=== PATIENT | male | born 2000 | race Hispanic/Latino ===

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

== ENCOUNTER 2020-01-04 18:42 | Emergency (ER) | payer MEDICAID ==
[2020-01-04 19:14] VITALS: BP 109/51
--- NOTE | 2020-01-05 01:11 | Emergency Department Report ---
Chief Complaint: Medical Clearance Stated Complaint: MED REFILL Time Seen by Provider: 01/05/20 01:09 - HPI History of Present Illness: 19-year-old male presents to the emergency room for a checkup. Patient states that he needs a refill on his medication as he left his antibiotics at his mother's house. Patient reports he is gotten 5 days of his antibiotics in for a foot wound. Patient denies any swelling no pain no discharge from wound. Patient states he is able to ambulate without difficulties and without pain - Exam Vital Signs: Vital Signs 01/04/20 19:11 Temperature 98.4 F Pulse Rate 95 H Respiratory 22 Rate Blood Pressure 109/51 O2 Sat by Pulse 98 Oximetry Physical Exam: Alert and oriented x3 no acute distress nontoxic in appearance. Left foot no swelling to the plantar aspect non-tenderness nonerythematous eraser size opening with less than 2 mm in depth. No drainage appreciated. MSE screening note: Focused history and physical exam performed. Due to findings the following was ordered: 19-year-old male presents to the emergency room for a checkup. Patient states that he needs a refill on his medication as he left his antibiotics at his mother's house. Patient reports he is gotten 5 days of his antibiotics in for a foot wound. Patient denies any swelling no pain no discharge from wound. Patient states he is able to ambulate without difficulties and without pain ED Disposition for [facility] Disposition: Z-07 MED SCREENING EXAM-LEFT Is pt being admited?: No Does the pt Need Aspirin: No Condition: Stable Additional Instructions: Follow-up with the primary care provider. Referrals: JACQUI FERRIS MD [Primary Care Provider] - 3-5 Days [facility] [Provider Group] - 3-5 Days
== END 2020-01-05 01:15 | disposition left against medical advice (07) ==
LOC: ED 18:42
DX: Z76.0 Encounter for issue of repeat prescription (principal); Z53.21 Procedure and treatment not carried out due to patient leaving prior to being seen by health care provider

== ENCOUNTER 2020-01-05 02:13 | Emergency (ER) | payer MEDICAID ==
[2020-01-05 02:44] VITALS: BP 111/64
[2020-01-05 03:21] LABS: Basophils # (Auto) 0.1 K/mm3 (0.0-0.1); Basophils % (Auto) 0.5 % (0.0-1.8); Eosinophils # (Auto) 0.3 K/mm3 (0.0-0.4); Eosinophils % (Auto) 2.3 % (0.0-4.3); Lymphocytes # (Auto) 3.4 K/mm3 (1.2-5.4); Lymphocytes % (Auto) 27.8 % (13.4-35.0); Mean Corpuscular HGB Conc 36 % (32-34); Mean Corpuscular Volume 87 fl (84-94); Monocytes % (Auto) 8.5 % (0.0-7.3); Platelet Count 263 K/mm3 (140-440); Red Blood Count 4.75 M/mm3 (3.65-5.03); Red Cell Distribution Width 13.2 % (13.2-15.2)
[2020-01-05 03:23] LABS: Hematocrit 41.2 % (35.5-45.6); Hemoglobin 14.8 gm/dl (11.8-15.2)
[2020-01-05 03:30] LABS: BUN/Creatinine Ratio 13; Blood Urea Nitrogen 12 mg/dL (9-20); Calcium 9.2 mg/dL (8.4-10.2); Hemolysis Index 14
[2020-01-05 03:40] LABS: Bilirubin,Urine NEG (Negative); Blood,Urine NEG (Negative); Color,Urine Yellow (Yellow); Mucus,Urine 1+ /HPF; Urobilinogen,Urine < 2.0 mg/dL (<2.0); WBC,Urine < 1.0 /HPF (0.0-6.0)
[2020-01-05 03:48] LABS: Amphetamine Screen,Urine PRESUMPTIVE NEGATIVE; Benzodiazepines Screen,Urine PRESUMPTIVE NEGATIVE; Cannabinoid Screen,Urine PRESUMPTIVE NEGATIVE; Cocaine Screen,Urine PRESUMPTIVE NEGATIVE; Methadone Screen,Urine PRESUMPTIVE NEGATIVE; Opiate Screen,Urine PRESUMPTIVE NEGATIVE
--- NOTE | 2020-01-05 06:27 | Emergency Department Report ---
ED Medical Clearance HPI - General Chief complaint: Medical Clearance Stated complaint: MEDICAL CLEARANCE Time Seen by Provider: 01/05/20 06:11 Source: patient Mode of arrival: Ambulatory - History of Present Illness Initial comments: 19-year-old male presents to ED requesting medical clearance in order to return to the [facility] [place]. Patient states he visited his mother over the weekend. Patient has no complaints. MD Complaint: medical clearance request Reason for Medical Clearance: other trauma Alledged Intoxication: No Traumatic Symptoms: denies traumatic injury Associated Symptoms: denies: chest pain, shortness of breath, fever/chills Treatments Prior to Arrival: none Home medications: Previous Rx's Medication Instructions Recorded Last Taken Type Ciprofloxacin HCl [Ciprofloxacin 500 mg PO Q12HR #20 tab 12/28/19 Unknown Rx TAB] Ibuprofen [Motrin] 800 mg PO Q8HR PRN #24 tablet 12/28/19 Unknown Rx Allergies/Adverse reactions: Allergies Allergy/AdvReac Type Severity Reaction Status Date / Time No Known Allergies Allergy Unverified 12/28/19 06:34 ED Review of Systems ROS: Stated complaint: MEDICAL CLEARANCE Other details as noted in HPI Comment: All other systems reviewed and negative Constitutional: denies: fever Respiratory: denies: shortness of breath Cardiovascular: denies: chest pain ED Past Medical Hx - Past Medical History Previous Medical History?: Yes Hx Psychiatric Treatment: Yes (Anxiety,depression, Autism, Paranoia) - Surgical History Past Surgical History?: No - Social History Smoking Status: Never Smoker Substance Use Type: Marijuana - Medications Home Medications: Home Medications Medication Instructions Recorded Confirmed Last Taken Type Ciprofloxacin HCl [Ciprofloxacin 500 mg PO Q12HR #20 tab 12/28/19 Unknown Rx TAB] Ibuprofen [Motrin] 800 mg PO Q8HR PRN #24 tablet 12/28/19 Unknown Rx ED Physical Exam - General Limitations: No Limitations General appearance: alert, in no apparent distress - Head Head exam: Present: atraumatic, normocephalic - Eye Eye exam: Present: normal appearance, EOMI - ENT ENT exam: Present: mucous membranes moist - Neck Neck exam: Present: normal inspection - Respiratory Respiratory exam: Present: normal lung sounds bilaterally. Absent: respiratory distress - Cardiovascular Cardiovascular Exam: Present: regular rate, normal rhythm - GI/Abdominal GI/Abdominal exam: Absent: distended - Extremities Exam Extremities exam: Present: normal inspection - Neurological Exam Neurological exam: Present: alert, oriented X3 - Psychiatric Psychiatric exam: Present: normal affect, normal mood - Skin Skin exam: Present: warm, dry, intact, normal color ED Course Vital Signs 01/05/20 02:38 Temperature 98.3 F Pulse Rate 71 Respiratory 20 Rate Blood Pressure 111/64 O2 Sat by Pulse 97 Oximetry ED Medical Decision Making - Lab Data Result diagrams: 01/05/20 03:00 01/05/20 03:00 - Medical Decision Making Labs unremarkable. Will d/c home. ED Disposition Clinical Impression: Encounter for medical clearance for patient hold Disposition: DC-01 TO HOME OR SELFCARE Is pt being admited?: No Condition: Stable Referrals: PRIMARY CARE [Primary Care Provider] - 3-5 Days [facility] [Provider Group] - 3-5 Days Time of Disposition: 06:26
== END 2020-01-05 06:42 | disposition home or self-care (01) ==
LOC: ED 02:13
DX: F41.9 Anxiety disorder, unspecified (principal); F32.89 Other specified depressive episodes; F84.0 Autistic disorder; F22 Delusional disorders; F12.10 Cannabis abuse, uncomplicated; Z79.899 Other long term (current) drug therapy; Z00.00 Encounter for general adult medical examination without abnormal findings
CPT/HCPCS: 36415; 80048; 80307; 80320; 81001; 85025; G0480